=== PATIENT | female | born 1995 | race Caucasian/White ===

== ENCOUNTER 2020-01-26 19:14 | Emergency (ER) | payer MEDICAID, SELFPAY ==
[2020-01-26 19:23] VITALS: BP 165/101; PULSE 80; RESP 18; TEMP 36.7; O2SAT 99; BMI 51.0
--- NOTE | 2020-01-26 19:41 | ED_ITS ---
Entered by Carmel Linn, acting as scribe for Marilyn Callahan HPI - General: Chief complaint: OB/Uterine Contractions Stated complaint: possible miscarriage Time Seen by Provider: 01/26/20 19:39 Source: patient and family Mode of arrival: ambulatory History of Present Illness: HPI Narrative: 24 y/o female presents to the ED for possible miscarriage. Pt states she is 9 weeks . She has had brown discharge since her OB appointment on Wednesday. Since then, the amount of discharge has increased and she started cramping last night. She has had 1 previous which ended in a miscarriage at 8 weeks. Pt states she had heavy brown discharge just before her previous miscarriage, so she is very concerned. Associated symptoms: Deny dysuria, headache(s), malaise or syncope Review of Systems General: Reports: other (negative unless marked) Const: Denies: fever, chills, body aches, fatigue, malaise or diaphoresis Eyes: Denies: change in vision or blurry vision ENMT: Denies: throat pain, painful swallowing, hoarseness, ear pain, ear discharge, Change in hearing or nasal discharge Card: Denies: chest pain, palpitations, irregular heart rhythm, syncope, pre- syncope, shortness of breath on exertion or shortness of breath when lying down Resp: Denies: shortness of breath, productive cough, non-productive cough, wheezing, coughing up blood or chest congestion : Denies: flank pain, painful urination, urinary frequency, urinary urgency, decreased urine ouput, urinary incontinence or blood in urine Musc: Denies: neck pain, back pain, extremity pain, extremity swelling, joint pain, joint swelling, joint warmth or joint stiffness Skin/Breast: Denies: rash, skin tenderness or yellow skin Neuro: Denies: headache, numbness in extremities, weakness in extremities, changes in sensation, lack of coordination, difficulty walking, dizziness, vertigo or confusion Endo: Denies: excessive thirst, tired all the time, cold intolerance, excessive sweating, flushing or hot flashes Adolfo/Lymph: Denies: easy bruising, easy bleeding, petechiae or enlarged lymph nodes All/Imm: Denies: hives, throat swelling, tongue swelling, facial swelling or acute wheezing PFSH ED PFSH: Social History Smoking and tobacco status: never smoked Physical Exam Const: COMMON NORMALS: oriented x3, no limitations, healthy appearing and well nourished EXAM LIMITATIONS: no altered mental status GENERAL APPEARANCE: cooperative, well kempt and well developed ORIENTATION/CONSCIOUSNESS: Yes awake HENMT: COMMON NORMALS: normocephalic, head/scalp atraumatic, hearing grossly normal bilaterally, external ears normal, EAC's normal, external nose normal and moist oral mucous membranes HEAD & SCALP: normal to inspection, normocephalic and atraumatic FACE & SINUS: normal facial exam and face symmetric NOSE: external nose normal and nares normal EXTERNAL EAR: Yes external ears normal EXTERNAL AUDITORY CANAL: EAC's normal MOUTH: oral and palatal mucosa normal and tongue normal Eye: COMMON NORMALS: PERRL, EOMs intact bilaterally, conjunctivae normal and no scleral icterus GENERAL EYE: normal appearance of both eyes and normal light reflex CONJUNCTIVA: Yes conjunctivae normal SCLERA: sclerae normal CORNEA: Yes corneas normal PUPIL: Yes PERRL DIRECT OPHTHALMOSCOPY: Yes normal light reflex Neck/C-Spine: COMMON NORMALS: full ROM, no lymphadenopathy, supple, no meningeal signs and no JVD GENERAL: Yes normal visual inspection and Yes trachea midline CERVICAL SPINE: Yes cervical ROM normal Chest: COMMONS NORMALS: inspection of chest normal and palpation of chest normal Resp: COMMON NORMALS: normal respiratory effort, no retractions, no use of accessory muscles and clear to auscultation bilaterally EFFORT & INSPECTION: Yes able to speak in complete sentences AUSCULTATION: clear to auscultation bilaterally Cardio: COMMON NORMALS: no JVD, regular rate, regular rhythm, S1 normal heart sound, S2 normal heart sound, no gallops, no clicks, no murmurs and no rub JUGULAR VENOUS DISTENTION: no JVD RATE: regular rate RHYTHM: regular rhythm HEART SOUNDS: S1 normal and S2 normal GI: COMMON NORMALS: no hepatosplenomegaly and no masses INSPECTION: Yes normal to inspection PALPATION: Yes no hepatosplenomegaly : COMMON NORMALS: Yes no CVA tenderness BLADDER/KIDNEY EXAM: Yes no CVA tenderness Back/Pelvis: COMMON NORMALS: no CVA tenderness Extremity: COMMON NORMALS: normal to inspection, full ROM, normal capillary refill, no joint enlargement, no clubbing, cyanosis or edema and no calf tenderness Neuro: COMMON NORMALS: oriented x3, CN's II-XII intact bilaterally, moves all extremities, no focal motor deficits and no sensory deficits noted MENINGEAL SIGNS: Yes no meningeal signs Psych: COMMON NORMALS: mental status grossly normal, thought process normal, cooperative, affect normal, speech normal and activity/motor behavior normal APPEARANCE: Yes well kempt SPEECH: Yes normal speech THOUGHT PROCESS: normal thought process Skin: COMMON NORMALS: no rashes or lesions noted, skin turgor normal, no jaundice, no petechiae and no mottling GENERAL SKIN EXAM: no rashes or lesions noted and turgor normal Course Vital Signs: Vital signs: Vital Signs Temperature 98.1 F 01/26/20 19:23 Pulse Rate 67 01/26/20 21:36 Respiratory Rate 16 01/26/20 21:36 Blood Pressure 151/103 01/26/20 21:36 Pulse Oximetry 98 01/26/20 21:36 MDM - OB/Uterine Contractions MDM Narrative: Medical decision making narrative: Katelin is a nice 24-year-old female who comes in with discharge and cramping. Ultrasound reveals a normal . The patient adamantly refused a cath urinalysis and she refused a pelvic exam. She understood this greatly limited my ability to be certain everything was okay but she was adamant she did not want this done. I believe she just wanted an ultrasound that was the goal of her coming to the emergency room tonight. Ultimately I will have to treat her for possible UTI although this could be contamination. The patient seemed to stop having any types of complaints of pain or anything after her ultrasound was completed. She understands she is welcome to return should she change her mind but at this time she would like to go home. Patient denied any vaginal bleeding. Lab Data: Labs: Lab Results 01/26/20 01/26/20 01/26/20 Range/Units 19:42 19:42 19:42 WBC 8.9 (4.0-10.0) 10^3/ uL RBC 5.27 (4.1-5.3) 10^6/u L Hgb 15.0 (11.5-15.3) g/dL Hct 45.7 (37.0-47.0) % MCV 86.7 (81-99) fL MCH 28.5 (28.0-34.0) pg MCHC 32.8 (30.0-36.0) g/dL RDW 13.0 (12.1-15.1) % Plt Count 420 H (130-400) 10^3/c mm MPV 10.0 (7.4-10.4) fL Neut % (Auto) 70.5 % Lymph % (Auto) 22.1 % Trinity % (Auto) 6.4 % Eos % (Auto) 0.3 % Baso % (Auto) 0.5 % Neut # (Auto) 6.2 (1.8-7.7) 10^3/u L Lymph # (Auto) 2.0 (0.8-4.8) 10^3/u L Trinity # (Auto) 0.6 (0.2-0.9) 10^3/u L Eos # (Auto) 0.0 (0.0-0.8) 10^3/u L Baso # (Auto) 0.0 (0.0-0.1) 10^3/u L Nucleated RBC % (a uto) 0 % Nucleated RBCs # 0.0 /100WBC Sodium 132 L (136-145) mmol/L Potassium 3.8 (3.5-5.1) mmol/L Chloride 97 L (98-107) mmol/L Carbon Dioxide 21 L (22-29) mmol/L Anion Gap 17.8 (5-19) BUN 7 (6-20) mg/dL Creatinine 0.7 (0.5-0.9) mg/dL GFR Calculation 101.1 (90-130) mL/min Glucose 87 (65-115) mg/dL Calcium 10.8 H (8.5-10.5) mg/dL Total Bilirubin 0.6 (0.15-1.2) mg/dL AST 22 (0-32) U/L ALT 20 (0-33) U/L Alkaline Phosphata se 57 (35-105) IU/L Total Protein 8.2 (6.6-8.7) g/dL Albumin 4.7 (3.5-5.2) g/dL Globulin 3.5 (1.3-4.6) g/dL Ser , [place] 68[address].00 mIU/mL Urine Color (Yellow) Urine Appearance (CLEAR) Urine pH (5-7) Ur Specific Gravit y (1.005-1.030) Urine Protein (Negative) Urine Glucose (UA) (Normal) Urine Ketones (Negative) Urine Blood (Negative) Urine Nitrate (Negative) Urine Bilirubin (NEGATIVE) Urine Urobilinogen (Negative) mg/dL Ur Leukocyte Gwen ase (Negative) Urine RBC (0-2) /hpf Urine WBC (0-5) /hpf Ur Squamous Epith Cells (0-5) Urine Bacteria (NONE) Blood Type O Positive Rho(D) Type Positive 01/26/20 Range/Units 20:48 WBC (4.0-10.0) 10^3/ uL RBC (4.1-5.3) 10^6/u L Hgb (11.5-15.3) g/dL Hct (37.0-47.0) % MCV (81-99) fL MCH (28.0-34.0) pg MCHC (30.0-36.0) g/dL RDW (12.1-15.1) % Plt Count (130-400) 10^3/c mm MPV (7.4-10.4) fL Neut % (Auto) % Lymph % (Auto) % Trinity % (Auto) % Eos % (Auto) % Baso % (Auto) % Neut # (Auto) (1.8-7.7) 10^3/u L Lymph # (Auto) (0.8-4.8) 10^3/u L Trinity # (Auto) (0.2-0.9) 10^3/u L Eos # (Auto) (0.0-0.8) 10^3/u L Baso # (Auto) (0.0-0.1) 10^3/u L Nucleated RBC % (a uto) % Nucleated RBCs # /100WBC Sodium (136-145) mmol/L Potassium (3.5-5.1) mmol/L Chloride (98-107) mmol/L Carbon Dioxide (22-29) mmol/L Anion Gap (5-19) BUN (6-20) mg/dL Creatinine (0.5-0.9) mg/dL GFR Calculation (90-130) mL/min Glucose (65-115) mg/dL Calcium (8.5-10.5) mg/dL Total Bilirubin (0.15-1.2) mg/dL AST (0-32) U/L ALT (0-33) U/L Alkaline Phosphata se (35-105) IU/L Total Protein (6.6-8.7) g/dL Albumin (3.5-5.2) g/dL Globulin (1.3-4.6) g/dL Ser , Wilmer i-Qnt mIU/mL Urine Color Yellow (Yellow) Urine Appearance Cloudy (CLEAR) Urine pH 5 (5-7) Ur Specific Gravit y 1.030 (1.005-1.030) Urine Protein Neg (Negative) Urine Glucose (UA) Norm (Normal) Urine Ketones 1+ H (Negative) Urine Blood 2+ H (Negative) Urine Nitrate Negative (Negative) Urine Bilirubin Neg (NEGATIVE) Urine Urobilinogen Norm (Negative) mg/dL Ur Leukocyte Gwen ase Trace H (Negative) Urine RBC 0-4 H (0-2) /hpf Urine WBC 25-40 H (0-5) /hpf Ur Squamous Epith Cells 15-25 H (0-5) Urine Bacteria 1+ H (NONE) Blood Type Rho(D) Type Imaging Data^: US OB: My impression: Pelvic ultrasound, technologist interpretation - 8-week 3-day intrauterine . No free fluid. Cervix closed. Tubes and ovaries normal without evidence of torsion or cyst. Discharge Plan Discharge Patient Disposition: Left Against Medical Advice Clinical Impression: Threatened miscarriage Qualifiers: Weeks of gestation: 8 weeks Qualified Code(s): Z3A.08 - 8 weeks gestation of UTI (urinary tract infection) Qualifiers: Urinary tract infection type: site unspecified Hematuria presence: without hematuria Qualified Code(s): N39.0 - Urinary tract infection, site not specified Condition: Stable Prescriptions: New Macrobid 100 mg capsule 100 mg PO BID 7 Days Qty: 14 RF: 0 No Action levothyroxine 75 mcg Tablet 75 mcg PO DAILY RF: 0 Referrals: Too Alvarez MD [Physician] - 1-3 days Discharge Diet: Advance as tolerated Discharge Activity: Limit activity as instructed Patient Instructions: Threatened Miscarriage (ED), Abdominal Pain in (ED) Activity Restrictions/Additional Instructions: You're leaving AGAINST MEDICAL ADVICE and are at risk for or severe permanent disability by doing so. You are more than welcome to return at any time for recheck and for further evaluation and care suture change you change your mind. A pelvic exam and proper urinalysis was not performed here this could put your at risk. If you change your mind and want to have a complete evaluation you are more than welcome to return for recheck and further evaluation and care. Discharge Date/Time: 01/26/20 21:39 Coding Level of Care Code ED Manager Practice for Chg Fwd Exam Comprehensive The documentation recorded by the benitaibKaveh lizama Ashley, accurately reflects the service I personally performed and the decisions made by me, Marilyn Callahan Jan 26, 2020 19:14
--- NOTE | 2020-01-26 19:41 | PC.NURSE ---
Patient states she is about 9 weeks and previously had a miscarriage at 8 weeks. Patient states she today she started having cramping and brown discharge and was told to come in to get checked out.
--- NOTE | 2020-01-26 19:44 | USR_ITS ---
PROCEDURE INFORMATION: Exam: US First Trimester, Transabdominal and US , Transvaginal Exam date and time: 01/26/2020 8:24 PM Age: 24 years old Clinical indication: complicated by abdominal or pelvic pain; Lower; First trimester; Gestational age or lmp: 9weeks 0days; TECHNIQUE: Imaging protocol: Real-time transabdominal obstetrical ultrasound of the maternal pelvis and a first trimester , less than 14 weeks 0 days, with image documentation. Transvaginal imaging was used for better evaluation of the fetus and adnexa. COMPARISON: US gall bladder [id number] 11/15/2019 7:15 PM FINDINGS: GESTATION: Gestation: Single live intrauterine . A normal-appearing yolk sac is identified. Heart rate: The heart rate was measured to be 157 bpm. Estimated gestational age: Gestational age as measured by crown-rump length is 8 weeks 3 days. Right adnexa: The right ovary is not visualized. Left adnexa: The left ovary is not visualized. Intraperitoneal: No intraperitoneal free fluid. US/US OB <= 14 weeks fetus [id number] IMPRESSION: 1. Single live intrauterine . 2. Gestational age as measured by crown-rump length is 8 weeks 3 days. 3. Neither ovary is visualized.
[2020-01-26 19:47] VITALS: BP 185/137; PULSE 75; RESP 16; O2SAT 99
--- NOTE | 2020-01-26 19:59 | PC.NURSE ---
Patient refused in and out catheter, HCP educated patient on why a clean sample is needed due to patients discharge but patient refused when nurse came in to do procedure.
[2020-01-26 20:02] LABS: Basophils % 0.5 %; Eosinophils % 0.3 %; Hematocrit 45.7 % (37.0-47.0); Lymphocytes % 22.1 %; Mean Corpuscular HGB Conc 32.8 g/dL (30.0-36.0); Mean Corpuscular Hemoglobin 28.5 pg (28.0-34.0); Mean Corpuscular Volume 86.7 fL (81-99); Monocytes # 0.6 10^3/uL (0.2-0.9); Monocytes % 6.4 %; Neutrophils # 6.2 10^3/uL (1.8-7.7); Neutrophils % 70.5 %; Nucleated Red Blood Cells % 0 %; Platelet Count 420 10^3/cmm (130-400); Red Blood Count 5.27 10^6/uL (4.1-5.3); White Blood Count 8.9 10^3/uL (4.0-10.0)
[2020-01-26 20:28] LABS: Alanine Aminotransferase 20 U/L (0-33); Albumin Level 4.7 g/dL (3.5-5.2); Alkaline Phosphatase 57 IU/L (35-105); Anion Gap 17.8 (5-19); Aspartate Amino Transferase 22 U/L (0-32); Blood Urea Nitrogen 7 mg/dL (6-20); Calcium 10.8 mg/dL (8.5-10.5); Carbon Dioxide 21 mmol/L (22-29); Chloride 97 mmol/L (98-107); Globulin 3.5 g/dL (1.3-4.6); Glomerular Filtration Rate 101.1 mL/min (90-130); Glucose 87 mg/dL (65-115); Potassium 3.8 mmol/L (3.5-5.1); Sodium 132 mmol/L (136-145); Total Bilirubin 0.6 mg/dL (0.15-1.2); Total Protein 8.2 g/dL (6.6-8.7)
--- NOTE | 2020-01-26 20:38 | PC.NURSE ---
Ultrasound in room with patient at 2014
--- NOTE | 2020-01-26 20:39 | PC.NURSE ---
Patient refused pelvic exam, in and out catheter, and iv with fluid maintenance. Patient states they only want the ultrasound and that is all.
[2020-01-26 20:41] VITALS: BP 177/107; PULSE 73; RESP 16; O2SAT 100
--- NOTE | 2020-01-26 20:45 | PC.NURSE ---
Patient up to bathroom with clean catch packaging, patient educated on clean catch procedure and verbalized understanding.
[2020-01-26 21:17] LABS: Bilirubin Urine Neg (NEGATIVE); Blood Urine 2+ (Negative); Glucose Urine UA Norm (Normal); Ketones Urine 1+ (Negative); Leukocyte Esterase Urine Trace (Negative); Nitrate Urine Negative (Negative); Protein Urine Neg (Negative); RBC Urine 0-4 /hpf (0-2); Squamous Epithelial Cell Urine 15-25 (0-5); Urine Appearance Cloudy (CLEAR); Urine Color Yellow (Yellow); Urobilinogen Urine Norm (Negative); WBC Urine 25-40 /hpf (0-5); pH Urine 5 (5-7)
[2020-01-26 21:18] LABS: Add Urine Culture? No; Bacteria Urine 1+
[2020-01-26 21:25] VITALS: BP 139/88; PULSE 76; RESP 16; O2SAT 100
[2020-01-26 21:36] VITALS: BP 151/103; PULSE 67; RESP 16; O2SAT 98
== END 2020-01-26 21:39 | disposition left against medical advice (07) ==
PROVIDERS: Emergency Medicine; Emergency Provider Emergency Medicine
DX: O20.0 Threatened abortion (principal); Z3A.08 8 weeks gestation of pregnancy; Z53.29 Procedure and treatment not carried out because of patient's decision for other reasons
CPT/HCPCS: 76801; 80053; 81001; 84702; 85025; 86900; 99282; 99283; A9270

== ENCOUNTER 2020-05-09 08:08 | Outpatient (CLI) | payer MEDICAID, SELFPAY ==
[2020-05-09 08:35] VITALS: RESP 20; TEMP 36.5
[2020-05-09 09:21] VITALS: BMI 47.2
[2020-05-09 10:02] LABS: Bilirubin Urine 1+ (NEGATIVE); Blood Urine Neg (Negative); Glucose Urine UA Norm (Normal); Ketones Urine 2+ (Negative); Leukocyte Esterase Urine Negative (Negative); Nitrate Urine Negative (Negative); Protein Urine Neg (Negative); Urine Appearance Clear (CLEAR); Urine Color Yellow (Yellow); Urobilinogen Urine 1 mg/dL (Negative)
[2020-05-09 10:03] VITALS: BP 105/51; PULSE 87
[2020-05-09 10:17] VITALS: BP 0/0
[2020-05-09 10:18] VITALS: BP 126/78; PULSE 86
[2020-05-09 10:28] LABS: RBC Urine 0-4 /hpf (0-2)
[2020-05-09 10:29] LABS: Bacteria Urine TRACE; Calcium Oxalate Crystals Urine 0-4 /hpf; Mucus Urine 1+
[2020-05-09 10:30] LABS: Add Urine Culture? No
[2020-05-09 10:33] VITALS: BP 148/75; PULSE 72
[2020-05-09 10:47] VITALS: BP 0/0
== END 2020-05-09 11:15 | disposition home or self-care (01) ==
LOC: OPOB 08:24 → OBGYN 08:26 → OPOB 09:38 → OBGYN 09:39
PROVIDERS: Visit Provider Family Medicine
DX: O26.899 Other specified pregnancy related conditions, unspecified trimester (principal); Z3A.00 Weeks of gestation of pregnancy not specified; R10.9 Unspecified abdominal pain
CPT/HCPCS: 81001; 99211

== ENCOUNTER 2020-08-07 17:50 | Outpatient (CLI) | payer MEDICAID, SELFPAY ==
[2020-08-07 18:06] VITALS: BMI 49.8
[2020-08-07] MEDS: betamethasone susp 6 mg/mL 5 mL 12 MG IM (18:10)
[2020-08-07 18:19] VITALS: BP 143/87; PULSE 97; RESP 15; TEMP 36.7
== END 2020-08-07 18:31 | disposition home or self-care (01) ==
LOC: OPOB 17:57
PROVIDERS: Visit Provider Obstetrics & Gynecology
DX: O13.9 Gestational [pregnancy-induced] hypertension without significant proteinuria, unspecified trimester (principal); Z3A.00 Weeks of gestation of pregnancy not specified
CPT/HCPCS: 99211; J0702

== ENCOUNTER 2021-01-09 20:48 | Emergency (ER) | payer MEDICAID, SELFPAY ==
[2021-01-09 20:57] VITALS: BP 187/120; PULSE 70; RESP 18; TEMP 36.6; O2SAT 100; BMI 48.3
--- NOTE | 2021-01-09 22:04 | US_ITS ---
WS: [id number] ULTRASOUND ABDOMEN LIMITED CLINICAL INFORMATION: abd pain COMPARISON: None. FINDINGS: Liver Size: Normal. Craniocaudal length: 15.9 cm. Echogenicity: Diffuse fatty infiltration liver. Surface nodularity: None. Mass (size and location): None. Bile ducts Intrahepatic ducts: Normal. Common bile duct diameter: 0.4 cm. Gallbladder Normal. Gallstones: None. Gallbladder sludge: None. Gallbladder wall thickening: None. Pericholecystic fluid: None. Sonographic Tim sign: Absent. Pancreas Not well seen Right kidney: Normal. Hydronephrosis: None. Size: 10.6 cm x 5.1 cm x 5.2 cm. Abdominal aorta and IVC Visualized portions are normal. Ascites: None. US/US gall bladder [id number] IMPRESSION: 1. Diffuse fatty infiltration liver. 2. Normal gallbladder and common bile duct. 3. No hydronephrosis in right kidney.
--- NOTE | 2021-01-09 22:05 | ED_ITS ---
HPI - Abdominal Pain General: Chief Complaint: Abdominal Pain Stated Complaint: ABDOMINAL PAIN WORSENING Time Seen by Provider: 01/09/21 21:53 Source: patient Mode of arrival: ambulatory Limitations: no limitations History of Present Illness: HPI narrative: 25-year-old female states she been having right upper quadrant and epigastric pain over the last 2 weeks. States got much worse tonight rates her pain a 9 out of 10. She denies any worsening improving factors. She stated is not worse with eating. Denies any vomiting or diarrhea. MD elicited complaint: abdominal pain Associated Symptoms: Denies chills, diarrhea, dysuria, fever(s), nausea and vomiting Related Data: Date of Last Menstrual Period: 12/15/20 Review of Systems Const: Denies: fever(s), chills, body aches or change in appetite Eyes: Denies: blurry vision or eye discomfort ENMT: Denies: throat pain or dental pain Card: Denies: chest pain Resp: Denies: dyspnea GI: Reports: abdominal pain; Denies: nausea, vomiting or diarrhea : Denies: dysuria Musc: Denies: neck pain or back pain Skin/Breast: Denies: rash Neuro: Denies: headache(s) Psych: Denies: depression Adolfo/Lymph: Denies: easy bruising All/Imm: Denies: urticaria PFSH ED PFSH: Social History Smoking and tobacco status: never smoked Female Reproductive History: Date of last menstrual period: 12/15/20 Physical Exam Const: COMMON NORMALS: no acute distress, patient oriented x3 and healthy appearing HENMT: COMMON NORMALS: normocephalic and atraumatic HEAD & SCALP: normocephalic and atraumatic Eye: COMMON NORMALS: Equal, round and reactive pupils present and EOMs intact bilaterally PUPIL: Yes Equal, round and reactive pupils present Neck/C-Spine: COMMON NORMALS: full ROM and supple Chest: COMMONS NORMALS: normal inspection of the chest and normal palpation of entire chest wall Resp: COMMON NORMALS: normal respiratory effort, No retractions, No use of accessory muscles and clear to auscultation bilaterally AUSCULTATION: clear to auscultation bilaterally Cardio: COMMON NORMALS: regular rate, regular rhythm and No murmurs present (Cardio) RATE: regular rate RHYTHM: regular rhythm GI: COMMON NORMALS: Normal to inspection, nondistended, normoactive bowel sounds present, Soft to palpation and no masses PALPATION: Yes Soft to palpation and Yes Tenderness to palpation present (GI) Details: RUQ Extremity: COMMON NORMALS: normal to inspection and full ROM Neuro: COMMON NORMALS: patient oriented x3, moves all extremities and no focal motor deficits Psych: COMMON NORMALS: mental status grossly normal, Normal thought process present and cooperative THOUGHT PROCESS: Normal thought process present Skin: COMMON NORMALS: no rashes or lesions noted and no wounds GENERAL SKIN EXAM: no rashes or lesions noted Course Reevaluation(s): Reevaluation #1: Patient refused IV. I went and spoke to her and she states she hates IVs and denied wanting wants to have a blood draw through a butterfly. She states she does not want morphine or Dilaudid. I try to explain to her we may have to do a CAT scan she states that she does not like our CAT scans make her feel and she refused that as well. We will do an ultras ound of her gallbladder at this time and blood draw through a butterfly. Time: 20:05 Vital Signs: Vital signs: Vital Signs Temperature 97.9 F 01/09/21 20:57 Pulse Rate 63 01/09/21 23:10 Respiratory Rate 16 01/09/21 23:10 Blood Pressure 154/99 01/09/21 23:10 Pulse Oximetry 99 01/09/21 23:10 MDM - Abdominal Pain MDM Narrative: Medical decision making narrative: Patient presents here with abdominal pain and ultrasound of her gallbladder here is normal. Blood work here is normal as well. She feels improved we will start her on Protonix. We will get her follow-up with Dr. Almaguer. She is return to the ER if worsening. I did offer her CT scan of her abdomen again and she refused. She understands agrees to plan. Lab Data: Labs: Lab Results 01/09/21 01/09/21 01/09/21 Range/Units 22:24 22:26 22:26 WBC 6.7 (4.0-10.0) 10^3/ uL RBC 4.89 (4.1-5.3) 10^6/u L Hgb 12.8 (11.5-15.3) g/dL Hct 40.3 (37.0-47.0) % MCV 82.4 (81-99) fL MCH 26.2 L (28.0-34.0) pg MCHC 31.8 (30.0-36.0) g/dL RDW 14.8 (12.1-15.1) % Plt Count 365 (130-400) 10^3/c mm MPV 9.7 (7.4-10.4) fL Neut % (Auto) 61.9 % Lymph % (Auto) 30.1 % [place]estone % (Auto) 6.0 % Eos % (Auto) 1.0 % Baso % (Auto) 0.7 % Neut # (Auto) 4.15 (1.8-7.7) 10^3/u L Lymph # (Auto) 2.0 (0.8-4.8) 10^3/u L [place] # (Auto) 0.4 (0.2-0.9) 10^3/u L Eos # (Auto) 0.1 (0.0-0.8) 10^3/u L Baso # (Auto) 0.1 (0.0-0.1) 10^3/u L Nucleated RBC % (a uto) 0 % Nucleated RBCs # 0.0 /100WBC Sodium 140 (136-145) mmol/L Potassium 3.4 L (3.5-5.1) mmol/L Chloride 104 (98-107) mmol/L Carbon Dioxide 26 (22-29) mmol/L Anion Gap 13.4 (5-19) BUN 7 (6-20) mg/dL Creatinine 0.5 (0.5-0.9) mg/dL GFR Calculation 148.0 H (90-130) mL/min Glucose 78 (65-115) mg/dL Calculated Osmolal ity 287 (285-295) mOsm/k g Calcium 8.9 (8.5-10.5) mg/dL Total Bilirubin 0.3 (0.15-1.2) mg/dL AST 18 (0-32) U/L ALT 17 (0-33) U/L Alkaline Phosphata se 85 (35-105) IU/L Total Protein 7.2 (6.6-8.7) g/dL Albumin 4.2 (3.5-5.2) g/dL Globulin 3.0 (1.3-4.6) g/dL Lipase 20 (13-60) U/L HCG, Qual Negative (Negative) Imaging Data ^: US: Attestation: I personally reviewed and interpreted this imaging study as follows: My impression: no gallstones or cholecystitis Discharge Plan Discharge Patient Disposition: Home Clinical Impression: Abdominal pain Qualifiers: Abdominal location: epigastric Qualified Code(s): R10.13 - Epigastric pain Condition: Stable Prescriptions: New Protonix 40 mg tablet,delayed release (DR/EC) 40 mg PO DAILY Qty: 60 RF: 0 No Action omeprazole 10 mg Capsule,Delayed Release(Dr/Ec) 10 mg PO DAILY RF: 0 labetalol 100 mg Tablet 100 mg PO BID RF: 0 Discharge Orders: Discharge ED (Routine); Ordered 01/09/21 Ordered By: Gale Jain Referrals: Nathan Vargas [Primary Care Provider] - Eddi Almaguer MD [Physician] - 1-3 days Discharge Diet: Advance as tolerated Discharge Activity: Resume usual activity Patient Instructions: Abdominal Pain (ED) Coding Level of Care Code ED Tobacco Sprayer for Chg Fwd Exam Comprehensive
[2021-01-09 22:31] VITALS: BP 198/101; PULSE 69; RESP 14; O2SAT 99
[2021-01-09 22:44] LABS: Basophils # 0.1 10^3/uL (0.0-0.1); Basophils % 0.7 %; Eosinophils # 0.1 10^3/uL (0.0-0.8); Hematocrit 40.3 % (37.0-47.0); Hemoglobin 12.8 g/dL (11.5-15.3); Lymphocytes % 30.1 %; Mean Corpuscular HGB Conc 31.8 g/dL (30.0-36.0); Mean Corpuscular Hemoglobin 26.2 pg (28.0-34.0); Mean Corpuscular Volume 82.4 fL (81-99); Mean Platelet Volume 9.7 fL (7.4-10.4); Monocytes # 0.4 10^3/uL (0.2-0.9); Neutrophils # 4.15 10^3/uL (1.8-7.7); Neutrophils % 61.9 %; Nucleated Red Blood Cells % 0 %; Platelet Count 365 10^3/cmm (130-400); Red Blood Count 4.89 10^6/uL (4.1-5.3); Red Cell Distribution Width 14.8 % (12.1-15.1); White Blood Count 6.7 10^3/uL (4.0-10.0)
[2021-01-09 22:49] LABS: HCG Qualitative Urine. Negative (Negative)
[2021-01-09 23:02] LABS: Alanine Aminotransferase 17 U/L (0-33); Albumin Level 4.2 g/dL (3.5-5.2); Alkaline Phosphatase 85 IU/L (35-105); Anion Gap 13.4 (5-19); Aspartate Amino Transferase 18 U/L (0-32); Blood Urea Nitrogen 7 mg/dL (6-20); Calcium 8.9 mg/dL (8.5-10.5); Carbon Dioxide 26 mmol/L (22-29); Chloride 104 mmol/L (98-107); Glucose 78 mg/dL (65-115); Lipase 20 U/L (13-60); Osmolality Calculated 287 mOsm/kg (285-295); Potassium 3.4 mmol/L (3.5-5.1); Sodium 140 mmol/L (136-145); Total Bilirubin 0.3 mg/dL (0.15-1.2); Total Protein 7.2 g/dL (6.6-8.7)
[2021-01-09 23:10] VITALS: BP 154/99; PULSE 63; RESP 16; O2SAT 99
[2021-01-09 23:21] LABS: Add Urine Microscopic? YES; Bilirubin Urine Neg (Negative); Blood Urine Neg (Negative); Glucose Urine UA Norm (Normal); Ketones Urine Negative (Negative); Leukocyte Esterase Urine Negative (Negative); Nitrate Urine Negative (Negative); Protein Urine Neg (Negative); Urine Appearance SL Hazy (CLEAR); Urine Color Yellow (Yellow); Urobilinogen Urine Norm (Negative); pH Urine 5 (5-7)
[2021-01-09 23:23] LABS: Bacteria Urine TRACE /hpf; Mucus Urine 1+ /hpf; RBC Urine 0-4 /hpf (0-2); Squamous Epithelial Cell Urine 0-4 /hpf (0-5); WBC Urine 0-4 /hpf (0-5)
[2021-01-09 23:24] LABS: Add Urine Culture? No
[2021-01-09 23:33] VITALS: BP 146/89; PULSE 89; RESP 16; O2SAT 99
--- NOTE | 2021-01-10 10:07 | DCPLANNER ---
Addendum entered by Ayah Jones 01/10/21 11:48: Silvia from general surgery, emailed mattress spring encaser stating that patient declined follow up appointment. Patient is going to follow up with primary care physician. Original Note: retail property manager had message to schedule a follow up appointment for patient with [facility] general surgery. retail property manager emailed patients information to both Anette and Silvia at general surgery. Patients information will be printed and reviewed. Clinic will call patient with appointment information.
== END 2021-01-09 23:34 | disposition home or self-care (01) ==
PROVIDERS: Emergency Provider Emergency Medicine; PCP Physician Assistant Medical
DX: R10.13 Epigastric pain (principal)
CPT/HCPCS: 76705; 80053; 81001; 81025; 83690; 85025; 99283

== ENCOUNTER 2024-01-27 13:45 | Outpatient (CLI) | payer SELFPAY ==
--- NOTE | 2024-01-27 13:49 | XR_ITS ---
WS: [id number] Exam: XR chest 2V* [id number] Date/Time of Exam: 01/27/2024 1:51 PM Reason For Exam: J40 - Bronchitis, not specified as acute or chronic Comparison 07/13/2019. The lungs are fully expanded and clear. Normal cardiomediastinal silhouette. No pleural effusions. Laci ny elements are intact. IMPRESSION: 1. No acute cardiopulmonary finding.
== END 2024-01-27 13:46 | disposition home or self-care (01) ==
LOC: RAD 13:45
PROVIDERS: PCP Registered Nurse; Visit Provider Registered Nurse
DX: J40 Bronchitis, not specified as acute or chronic (principal)
CPT/HCPCS: 71046

== ENCOUNTER → 2024-03-20 13:54 | Outpatient (BNVA) | payer SELFPAY | PROVIDERS: PCP Registered Nurse; Visit Provider Registered Nurse | DX: Z13.1 Encounter for screening for diabetes mellitus (principal); E06.3 Autoimmune thyroiditis; E78.5 Hyperlipidemia, unspecified | CPT/HCPCS: 80053; 80061; 83036; 84443 ==

== ENCOUNTER → 2025-04-09 14:10 | Outpatient (BNVA) | payer BC, MEDICAID, SELFPAY | PROVIDERS: PCP Registered Nurse; Visit Provider Registered Nurse | DX: E03.9 Hypothyroidism, unspecified (principal); E66.01 Morbid (severe) obesity due to excess calories; Z68.43 Body mass index [BMI] 50.0-59.9, adult; Z13.1 Encounter for screening for diabetes mellitus; E53.8 Deficiency of other specified B group vitamins | CPT/HCPCS: 80053; 82607; 83036; 84443; 85025 ==

== ENCOUNTER 2025-05-07 16:21 | Outpatient (CLI) | payer BC, MEDICAID, SELFPAY ==
--- NOTE | 2025-05-07 16:30 | CT_ITS ---
WS: [id number] CT ABDOMEN WITHOUT CONTRAST HISTORY: R10.9 - Unspecified abdominal pain Contiguous single phase 5 mm axial imaging performed to the abdomen. Oral contrast has not been provided. Coronal and sagittal reformats are submitted. All CT scans at [facility] use at least one of these dose optimization techniques: automated exposure control; mA and/or kV adjustment per patient size (includes targeted exams where dose is matched to clinical indication); or iterative reconstruction. IV CONTRAST: None Oral contrast: No DLP: 760.03 mGy.cm COMPARISON: 07/13/2019 Lower thorax: Lung bases are clear. Heart is normal size. No hiatal hernia. Liver/biliary system: Normal size with no intrahepatic dilatation. Gallbladder: Slightly contracted, probably due to nonfasting. Pancreas: Normal size pancreas and pancreatic duct. No adjacent inflammation. Spleen: 3 mm low-attenuation nodule in the pancreatic head was not present on the prior study. The remaining pancreas is negative. Adrenal glands: Normal. Right kidney: Normal. Left kidney: Normal. Aorta: Normal. Lymphadenopathy: None. Free fluid: None. GI tract: As visualized in the upper abdomen negative. Abdominal wall: Tiny fat-containing umbilical hernia. Visualized osseous structures: Unremarkable. CT/CT abdomen wo con [id number] IMPRESSION: 1. Pancreatic head 3 mm low-attenuation mass. This may be a small IPMN or cyst adenoma. Recommend follow-up pancreatic MRI evaluation with and without contras t in 3 months. 2. No renal obstruction. 3. Very small fat-containing umbilical hernia.
== END 2025-05-07 16:22 | disposition home or self-care (01) ==
LOC: RAD 16:24
PROVIDERS: PCP Registered Nurse; Visit Provider Registered Nurse
DX: R10.9 Unspecified abdominal pain (principal); K86.9 Disease of pancreas, unspecified
CPT/HCPCS: 74150

== ENCOUNTER → 2025-07-09 11:10 | Outpatient (BNVA) | payer BC, MEDICAID, SELFPAY | PROVIDERS: PCP Registered Nurse; Visit Provider Nurse Practitioner Women's Health | DX: Z11.3 Encounter for screening for infections with a predominantly sexual mode of transmission (principal); N89.8 Other specified noninflammatory disorders of vagina | CPT/HCPCS: 84315; 86592; 86705; 86706; 86709; 86803; 87340; 87806 ==

== ENCOUNTER 2025-09-11 10:28 | Day surgery (SDC) | payer BC, MEDICAID, SELFPAY ==
--- NOTE | 2025-09-11 10:53 | W.PM.OPSFHP ---
Same Day Surgery H&P Indication for Procedure/HPI DATE OF PROCEDURE: September 11, 2025 CHIEF COMPLAINT/INDICATIONFOR SURGICAL PROCEDURE: heartburn, crohn's PREOP DIAGNOSIS: heartburn, crohn's PLANNED PROCEDURE: Operation Date: 09/11/25 12:15 Proposed Procedures p EGD EGD with Biopsy 20350 R10.13(Not Applicable) - Ashkan Justin MD Medications/Allergies* Home Medications ?Medication ?Instructions ?Recorded ?Confirmed ?Type aspirin 81 mg chewable tablet 648 mg PO DAILY PRN Pain 09/05/25 09/05/25 History Allergies/Adverse Reactions Allergy/AdvReac Type Severity Reaction Status Date / Time latex Allergy Severe ALGY-Hives Verified 09/11/25 10:48 ceftriaxone (From Rocephin) Allergy ADR/ALGY-Hy Verified 09/11/25 10:48 potension erythromycin base Allergy Unknown Verified 09/11/25 10:48 Iodinated Contrast Media Allergy ADR-Dizzine Verified 09/11/25 10:48 ss morphine Allergy Unknown Verified 09/11/25 10:48 Penicillins Allergy ADR/ALGY-Hy Verified 09/11/25 10:48 potension tramadol Allergy ALGY-Difficulty Verified 09/11/25 10:48 Breathing Pertinent History/Comorbid Conditions* Medical History (Updated 09/05/25 @ 11:47 by SYLVESTER Cr) No pertinent past medical history neghx: htn,dm,thyroid,dvt/pe PCP: Surgical History (Updated 07/09/25 @ 13:41 by Jammie Kaplan NP) No pertinent past surgical history [place] teeth extracted Family History (Updated 07/09/25 @ 10:46 by Indu Cummings CMA) Hypertension Father Grandmother Thyroid disease Mother Denies family history of Colon cancer Ovarian cancer Prostate cancer Diabetes Heart disease Hyperlipidemia Breast cancer Uterine cancer Stroke Social History Smoking and tobacco/nicotine status: never used tobacco/nicotine Pertinent Exam Findings alert, oriented x 3, clear to auscultation bilaterally, regular rate & rhythm and procedure specific exam findings abdomen soft, nt, nd Recommendations Risks and benefits of procedure reviewed and Patient/family agree to proceed Surgery/Procedure today Other Plans: I have explained the risks and benefits of a diagnostic EGD with biopsy and the patient agrees to proceed. Patient understands the risks include aspiration and iatrogenic perforation and decides to proceed. Coding Level of Care Code Acute Code for Chg Fwd
[2025-09-11 10:54] VITALS: BP 157/106; PULSE 80; RESP 18; TEMP 36.3; O2SAT 100
[2025-09-11 10:57] VITALS: BMI 52.0
[2025-09-11 11:10] LABS: OR HCG Qualitative Urine Negative (Negative)
--- NOTE | 2025-09-11 12:02 | P.ANESASSM_ITS ---
Pre-Anesthetic Assessment Height/Weight: Height 1.55 m Weight 124.738 kg Temp Pulse Resp BP Pulse Ox 97.3 F L 80 18 157/106 100 09/11/25 10:54 09/11/25 10:54 09/11/25 10:54 09/11/25 10:54 09/11/25 10:54 Preop Diagnosis: heartburn, crohn's Operation Date: 09/11/25 12:15 Proposed Procedures p EGD EGD with Biopsy 31358 R10.13(Not Applicable) - Ashkan Justin MD Familial anesthetic complications: None Was Beta Teo taken within 24 hours: N/A Was Clonidine taken within 24 hours: N/A Last intake: Intake Last Liquid Date 09/10/25 Last Liquid Time 23:30 Last Solid Date 09/10/25 Last Solid Time 23:30 Social No alcohol and No tobacco Exam alert, oriented x 3, clear to auscultation bilaterally and regular rate & rhythm Airway Mallampati: Class IV Dentition: full Metabolic Morbid Obesity and Thyroid Disease Anesthetic Plan ASA status: 3 Anesthesia: MAC Risk of > 500 ml blood loss (7ml/kg in children): No Medications/Allergies Home Medications ?Medication ?Instructions ?Recorded ?Confirmed ?Last Taken ?Type aspirin 81 mg chewable tablet 648 mg PO DAILY PRN Pain 09/05/25 09/05/25 09/02/25 History Allergies Allergy/AdvReac Type Severity Reaction Status Date / Time latex Allergy Severe ALGY-Hives Verified 09/11/25 10:48 ceftriaxone (From Rocephin) Allergy ADR/ALGY-Hy Verified 09/11/25 10:48 potension erythromycin base Allergy Unknown Verified 09/11/25 10:48 Iodinated Contrast Media Allergy ADR-Dizzine Verified 09/11/25 10:48 ss morphine Allergy Unknown Verified 09/11/25 10:48 Penicillins Allergy ADR/ALGY-Hy Verified 09/11/25 10:48 potension tramadol Allergy ALGY-Difficulty Verified 09/11/25 10:48 Breathing Current Medications Generic Name Dose Route Start Last Admin Trade Name Freq PRN Reason Stop Dose Admin Sodium Chloride 1,000 mls @ 15 mls/hr 09/11/25 10:39 09/11/25 11:05 Sodium Chloride 0.9% IV 09/12/25 10:38 15 mls/hr .Q24H PRN Administration COLONOSCOPY FLUIDS PFSH Anesthesia Medical History (Updated 09/05/25 @ 11:47 by SYLVESTER Cr) No pertinent past medical history neghx: htn,dm,thyroid,dvt/pe PCP: Surgical History No pertinent past surgical history [place] teeth extracted Family History Father Hypertension Mother Thyroid disease Grandmother Hypertension Denies family history of Colon cancer Ovarian cancer Prostate cancer Diabetes Heart disease Hyperlipidemia Breast cancer Uterine cancer Stroke Social History Smoking and tobacco/nicotine status: never used tobacco/nicotine Female Reproductive History Date of last menstrual period: 08/20/25
[2025-09-11 12:11] VITALS: BP 162/88; PULSE 82; RESP 18; TEMP 36.2; O2SAT 97
[2025-09-11 12:45] VITALS: BP 157/80; PULSE 69; RESP 16; O2SAT 96
--- NOTE | 2025-09-11 12:45 | ANE.PACU2 ---
Inpatient post-anesthesia follow up: Airway intact: Yes Vital signs: Temperature 97.2 F Pulse Rate 69 Respiratory Rate 16 Blood Pressure 157/80 Pulse Oximetry 96 Oxygen Delivery Me thod Room Air Oxygen Flow Rate Fraction of Inspir ed Oxygen Hydration adequate: Yes Nausea and vomiting: No Pain level: 1 Mental status: Baseline
== END 2025-09-11 12:45 | disposition home or self-care (01) ==
PROVIDERS: Anesthesiology; PCP Registered Nurse; Visit Provider Student in an Organized Health Care Education/Training Program
PROC: 0DJ08ZZ Inspection of Upper Intestinal Tract, Via Natural or Artificial Opening Endoscopic (ICD-10-PCS; principal; 2025-09-11 12:15)
DX: R12 Heartburn (principal); K50.90 Crohn's disease, unspecified, without complications; K29.50 Unspecified chronic gastritis without bleeding; Z79.82 Long term (current) use of aspirin; E66.01 Morbid (severe) obesity due to excess calories; Z68.43 Body mass index [BMI] 50.0-59.9, adult; E07.9 Disorder of thyroid, unspecified
CPT/HCPCS: 43239; 81025; 88305; 88342; J2704; J7030

== ENCOUNTER 2025-09-24 14:21 | Outpatient (CLI) | payer BC, MEDICAID, SELFPAY ==
--- NOTE | 2025-09-24 14:30 | MR_ITS ---
WS: [id number] MRI OF THE ABDOMEN WITHOUT GADOLINIUM ENHANCEMENT TECHNIQUE: Coronal T2 Fase BH, Axial T2 Fase BH, Axial T2 FS BH, Zxial 3D Porter BH, CLINICAL INFORMATION: K86.2 - Cyst of pancreas COMPARISON: CT 05/07/2025 FINDINGS: Tiny low-attenuation lesion within seen in the head of the pancreas on the prior CT is again seen today. This is difficult to further evaluate due to small size and may present a sidebranch IPMN as there is a suggestion of an adjacent duct. Additional consideration is tiny cystadenoma or incidental cyst as previously described. Recommend 6-month follow-up with MRI or CT to confirm stability. No other suspicious pancreatic lesions. Tiny esophageal hiatal hernia. Adrenal glands are normal. Normal caliber abdominal aorta. Normal gallbladder. Common bile duct appears normal. Celiac and SMA are patent. No other suspicious findings. MR/MR abdomen wo con [id number] Impression: 1. See above discussion of the tiny pancreatic head lesion. 2. No other suspicious or new findings
== END 2025-09-24 14:22 | disposition home or self-care (01) ==
LOC: RAD 14:22
PROVIDERS: PCP Registered Nurse; Visit Provider Registered Nurse
DX: K86.2 Cyst of pancreas (principal)
CPT/HCPCS: 74181